=== PATIENT | male | born 1960 | race Asian ===

== ENCOUNTER 2021-10-25 04:30 | Day surgery (SDC) | payer BC ==
[2021-10-24 10:12] VITALS: BMI 28.1
[2021-10-25] MEDS ORDERED: LIDOCAINE HCL 1% EPINEPHRINE 1:200,000 30 ML VIAL (PF) ONE (11:14)
[2021-10-25] MEDS ORDERED: KETOROLAC TROMETHAMINE 30 MG/1 ML VIAL ONE ×2 (13:22→13:53)
[2021-10-25] MEDS ORDERED: DEXAMETHASONE SOD PHOSPHATE 4 MG/1 ML VIAL ONE ×2 (13:22→13:53)
[2021-10-25] MEDS ORDERED: LIDOCAINE HCL 2% 100 MG/5 ML DISP.SYRIN ONE (13:22)
[2021-10-25] MEDS ORDERED: MIDAZOLAM HCL 2 MG/2 ML SINGLE DOSE VIAL ONE (13:23)
[2021-10-25] MEDS ORDERED: PROPOFOL 20 ML ONE (13:23)
[2021-10-25] MEDS ORDERED: ceFAZolin SODIUM 1 GM VIAL IVPB ONE (13:45)
[2021-10-25] MEDS ORDERED: ceFAZolin SODIUM 1 GM VIAL ONE (13:52)
[2021-10-25] MEDS ORDERED: LIDOCAINE 1%/EPI 1:100000 (50 ML MULTI DOSE VIAL) INF ONE ×2 (14:10)
[2021-10-25] MEDS ORDERED: ONDANSETRON 4 MG/2 ML VIAL IVPUSH PRN (15:02)
[2021-10-25] MEDS ORDERED: LACTATED RINGERS SOLUTION 1,000 ML IV SCH (15:15)
[2021-10-25 17:49] VITALS: TEMP 98.2
[2021-10-25 17:55] VITALS: BP 135/75; PULSE 89
== END 2021-10-25 16:34 | disposition home or self-care (01) ==
LOC: JASU-SURG 04:30
PROVIDERS: ATTEND Surgery
PROC: 0KB30ZZ Excision of Left Neck Muscle, Open Approach (ICD-10-PCS; principal; 2021-10-25 13:30)
DX: D21.3 Benign neoplasm of connective and other soft tissue of thorax (principal); D21.0 Benign neoplasm of connective and other soft tissue of head, face and neck
CPT/HCPCS: 82962; 88304-TC; 94760